=== PATIENT | female | born 1940 | race Caucasian/White ===

== ENCOUNTER 2017-03-23 05:56 | Day surgery (SDC) | payer MEDICARE ==
[~2017-03-23] VITALS: Ht 155.6 cm; Wt 80.9 kg
[~2017-03-23 05:56] MED LIST: ACET-3088 PO; ASPI-611 PO; CALC600T12 PO; CETI10TA4 PO; CHOL3000 PO; ESTR42.53 VAGINALLY; FAMO-137 PO; FISH1CAP29 PO; HYDR-4246 PO; LISI-127 PO; MULT-806 PO; OMEP-29 PO; OMEP20TA2 PO
[2017-03-23 06:00] VITALS: BP 142/73; PULSE 80; RESP 16; TEMP 97.9; O2SAT 97; Ht 155.6 cm; Wt 80.9 kg
--- OUTSIDE RECORDS SUMMARY | 2017-03-23 06:00 | XMS REPORT | Referral Summary ---
Author Author [facility] Organization [facility] Address Unknown Phone Unavailable Care Team Providers Care Car Racer Name Role Phone Sachi Espinal Primary Care Physician [phone] Encounter VC Date(s): 12/27/16 - 12/27/16 [facility] [address] [place], [place] [address] [[email or web address]] Discharge Disposition: 01-Home or Self Care Attending Physician: Delbert Le MD Admitting Physician: Delbert Le MD Vital Signs No data available for this section Problem List Condition Effective Dates Status Health Status Informant Hypertension(Confirm Active ed) Obesity(Confirmed) Active patient Allergies, Adverse Reactions, Alerts Substance Reaction Severity Status ampicillin Active codeine Active morphine Active Medications Aspir 81 mg, Oral, Daily, 0 Refill(s) Start Date: 11/17/16 Status: Ordered calcium (as carbonate) 600 mg oral tablet mg tabs, Oral, TID, 0 Refill(s) Start Date: 11/17/16 Status: Ordered Daily Multivitamins oral tablet tabs, Oral, Daily, 0 Refill(s) Start Date: 11/17/16 Status: Ordered Fish Oil Oral, 0 Refill(s) Start Date: 11/17/16 Status: Ordered lisinopril Oral, Daily, 0 Refill(s) Start Date: 11/17/16 Status: Ordered Tylenol 325 mg oral capsule mg caps, Oral, TID, 0 Refill(s) Start Date: 11/17/16 Status: Ordered ZyrTEC Daily, 0 Refill(s) Start Date: 11/17/16 Status: Ordered Results No data available for this section Immunizations No data available for this section Procedures Procedure Date Related Diagnosis Body Site Cholecystectomy Surgery1 1Left knee surgery Social History Social History Type Response Smoking Status Never smoker Assessment and Plan Extracted from: Title: SB Shoulder Author: Delbert Le MD Date: 12/27/16 Impression and Plan Diagnosis Orthopedic aftercare (BGC10-GB Z47.89, Medical). Course: Improving. Patient Instructions: Counseled: Patient, Regarding diagnosis, Verbalized understanding. Orders Orders (Selected) Outpatient Orders Ordered Postoperative Est 25794: Completed Shoulder XR Complete Left: . Dx/Order Association Plan: Diagnosis: Orthopedic aftercare Comment: XRs reviewed and discussed with pt today. Handouts given. Based on today's assessment, she appears to be healing well. Will refer to PT. She can discontinue use of the sling. All questions answered today. F/U in x6 weeks. . This note is prepared by Patric Figueroa, acting as medical translator for Delbert Le MD. Delbert Le MD. The scribe's documentation has been prepared under my direction and personally reviewed by me in its entirety. I confirm that the note above accurately reflects all work, treatment, procedures, and medical decision making performed by me.
--- OUTSIDE RECORDS SUMMARY | 2017-03-23 06:01 | XMS REPORT | Referral Summary ---
Author Author [facility] Organization [facility] Address Unknown Phone Unavailable Care Team Providers Care Fur Puller Name Role Phone Sachi Espinal Primary Care Physician [phone] Encounter Date(s): 11/17/16 - 11/17/16 [facility] [address] [place], [place] [address] [[email or web address]] Discharge Diagnosis: Nondisplaced fracture of surgical neck of left humerus Discharge Diagnosis: Closed fracture of greater tuberosity of left humerus Discharge Disposition: 01-Home or Self Care Attending [...] Procedures Procedure Date Related Diagnosis Body Site Closed treatment of proximal humeral 11/17/16 (surgical or anatomical neck) fracture; without manipulation Cholecystectomy Surgery1 1Left knee surgery Social History Social History Type Response Smoking Status Never smoker Assessment and Plan Extracted from: Title: Office Visit Note Author: Delbert Le MD Date: 11/17/16 Assessment/Plan Closed fracture of greater tuberosity of left humerus Ordered: cltx proximal humeral fracture w/o manipulation 91423 Office Visit Level 3 New 26722 Nondisplaced fracture of surgical neck of left humerus Pain in left shoulder
--- OUTSIDE RECORDS SUMMARY | 2017-03-23 06:01 | XMS REPORT | Referral Summary ---
Author Author [facility] Organization [facility] Address Unknown Phone Unavailable Care Team Providers Care Jalousie Installer Name Role Phone Sachi Espinal Primary Care Physician [phone] Encounter VC Date(s): 11/26/16 - 11/26/16 [facility] [address] [place], [place] [address] [place] Discharge Disposition: 01-Home or Self Care Attending Physician: Nell Castro APRN Admitting Physician: Nell Castro APRN Vital Signs Most recent to 1 oldest [Reference Range]: Respiratory Rate 22 br/min [14-20 br/min] *HI* (11/26/16 11:35 AM) Problem List Condition Effective Dates Status Health [...] 0 Refill(s) Start Date: 11/17/16 Status: Ordered Ultram 50 mg oral tablet 50 mg 1 tabs, Oral, q6hr, as needed for pain, # 30 tabs, 0 Refill(s), called to pharmacy (Rx) Start Date: 11/26/16 Stop Date: 12/17/16 Status: Ordered ZyrTEC Daily, 0 Refill(s) Start Date: 11/17/16 Status: Ordered Results No data available for this section Immunizations No data available for this section Procedures Procedure Date Related Diagnosis Body Site Cholecystectomy Surgery1 1Left knee surgery Social History Social History Type Response Smoking Status Never smoker Assessment and Plan Extracted from: Title: Office Visit Note Author: Nell Castro [facility] Date: 11/26/16 Assessment/Plan Fracture of left humerus Patient is 2 weekspost injuryfor nonoperativeleft humeralneck fracture. Patient is going to continue with nonoperative management. She is finished continue wearing her slingand protecting her left shoulder. She will do her exercises as prescribed. A prescription for Ultram was sent out for pain management if the Tylenoldoes not work. Patient will follow-up again in 4 weeks. Patient is agreeable with this plan. All questions were answered in clinic at this time. My card was given to the patient and told to call if she has any questions or concerns prior to her next follow-up. Ordered: Office Visit Level 3 Est [id number] XR Shoulder Complete Left
--- OUTSIDE RECORDS SUMMARY | 2017-03-23 06:01 | XMS REPORT | Continuity of Care Document ---
Author Author [facility] Organization [facility] Address Unknown Phone Unavailable Care Team Providers Care Sales Solutions Representative Name Role Phone WILLIAMS ESPINAL MD Primary Care Physician [phone] Insurance Providers Guarantor Sonal Johnson Address [address] [place] [address] Email [email or web address] Payer [employer] Gold H[employer] Policy Number [id number] Subscriber's Name Sonal Johnson Relationship 18 Self Effective Date 14 Chief Complaint and Reason for Visit Chief Complaint Upper Extremity Injury Reason for Visit [id number] Radial head fracture, closed Problems Past Problems Medical Problem Onset Date Closed left humeral fracture Unknown Radial head fracture, closed Unknown Medications Current Home Medications Medication Dose Units Route Directions Days Qty Instructions Start Date Acetaminophen (Tylenol Arthritis) 650 Mg Tablet.er 1,300 Mg Oral Twice A Day 11/11/16 Aspirin 81 Mg Tablet 81 Mg Oral Daily 05/18/13 Calcium Carbonate (Calcium) 600 Mg Tablet 600 Mg Oral Daily 05/18 Cetirizine Hcl (Zyrtec) 10 Mg Tablet 10 Mg Oral Daily 05/18/13 Fish Oil/Gordon-3 Fatty Acids (Fish Oil 1,000 Mg Capsule) 1 Cap Capsule 2 Cap Oral Daily 05/18/13 Hydrocodone/Acetaminophen (Bloomer 5-325 Tablet) 5-325 Tablet 1-2 Tab Oral Every 4-6 Hours Prn 40 Tablet 11/11/16 Lisinopril 10 Mg Tablet 10 Mg Oral Twice A Day 05/18/13 Multivitamins (Multivitamin) 1 Tab Tablet 1 Tab Oral Daily Omeprazole (Prilosec) 20 Mg Capsule.dr 20 Mg Oral Twice A Day Social History Social History Problem Response Recorded Date/Time Onset Date Status Chewing Tobacco Status No 05/18/2013 4:20pm Not Applicable Not Applicable Hx Substance Use No 11/11/2016 2:10pm Not Applicable Not Applicable Hx Alcohol Use Y SOCIALLY 11/11/2016 2:10pm Not Applicable Not Applicable Has the pt used tobacco in the last 12 months No 05/21/2013 6:20am Not Applicable Not Applicable Query Response Start Date Stop Date Smoking Status Never smoker Hospital Discharge Instructions No hospital discharge instructions. Plan of Care Discharge Date 11/11/16 4:35pm Disposition 01 DISCHARGED HOME, SELF-CARE Condition at Discharge Stable Instructions/Education Provided DI for Shoulder Fracture Prescriptions See Medication Section Referrals WILLIAMS ESPINAL MD Address: [address] [facility] [address] [place] [id number] Additional Instructions/Education Call Dr. Delbert Le office in [place] for follow up appointment [phone]. [address] [facility] Take x-ray disk with you to appointment. Wear shoulder immobilizer as directed. Avoid supination of elbow. Ice shoulder every hours for 15 minutes for next 48 hours. You may take OTC ibuprofen for pain. Take Bloomer 5/325mg, 1-2 tabs every 4-6 hours as needed for pain. Follow treatment plan. Care Plan and Goals Physician Care Plan Problem: Left humeral fracture, radial head fracture left Goal: Follow up with primary care provider Instructions: Take medications and follow care plan as discussed/written Functional Status No functional status results. Allergies, Adverse Reactions, Alerts Allergen Type Severity Reaction Status Last Updated Morphine Allergy Intermediate RASH Active 05/21/13 Codeine Allergy Intermediate RASH Active 05/21/13 Ampicillin Allergy Intermediate RASH Active 05/21/13 Alendronate sodium Adverse Reaction Mild BOTHERED HER STOMACH Active 05/21 Immunizations Query Response on File Recorded Date/Time Hx Influenza Vaccination Y AUG 2012 05/21/13 6:20am Hx Pneumococcal Vaccination Y UNSURE OF DATE-WITHIN LAST 7 YEARS 05/21/13 6: 20am Hx Influenza Vaccination Y AUG 2012 05/21/13 6:20am Vital Signs Acute Vital Signs Vital Response Date/Time Temperature (Fahrenheit) 98.0 deg F (96.8 - 99.1) 11/11/2016 4:35pm Temperature (Calculated Celsius) 36.63405 degrees C (36.0 - 37.3) 11/11/2016 4:35pm Pulse Rate (adult) 66 bpm (60 - 100) 11/11/2016 4:35pm Respiratory Rate 16 breaths/min (10 - 20) 11/11/2016 4:35pm O2 Sat by Pulse Oximetry 94 % (90 - 100) 11/11/2016 4:35pm Blood Pressure 125/70 mm Hg 11/11/2016 4:35pm Height (Feet) 5 feet 11/11/2016 2:10pm Height (Inches) 1.00 inches 11/11/2016 2:10pm Weight (Kilograms) 84.400 kg 11/11/2016 2:10pm Body Mass Index (BMI) 35.0 11/11/2016 2:10pm Results Name: SONAL JOHNSON Unit #: [id number] : 1940 Sex: F Admit Date: Loc / Svc: ED Discharge Date: DIAGNOSTIC IMAGING REPORT Report #: [id number] [facility] [place] Indication: ITS.REASON: Fall with left elbow pain with movement PROCEDURE: ELBOW LEFT 3 VIEW: Encounter: Initial Comparison: None Findings: There is a sharp cortical margin along the radial head superiorly seen on the lateral view only. This is not definitely confirmed on the other views. No additional area concerning for acute fracture or dislocation. Impression: Subtle evidence for a nondisplaced radial head fracture. . Procedures No known history of procedures. Encounters Encounter Location Arrival/Admit Date Discharge/Depart Date Attending Provider Departed Emergency Room [facility] 11/11/16 2:03pm 11/11/16 4: 35pm SUBHASH CROWDER DO Recent Diagnosis
[2017-03-23] MEDS ORDERED: LR 1,000 ML IV SCH (07:00)
[2017-03-23] MEDS ORDERED: LIDOCAINE 1% (10mg/ml) 2ml SDV INJ ONE (07:00)
[2017-03-23] MEDS ORDERED: LIDOCAINE VISCOUS 2% Oral Soln 15ml UD ONE (07:18)
--- NOTE | 2017-03-23 07:27 | ANESPREOP ---
Anesthesia Record Date and Time DATE: 03/23/17 TIME: 07:24 Pre-Op Diagnosis anemia, GERD, CRCS Proposed Surgical Procedure EGD & COLONOSCOPY Allergies: Coded Allergies: ampicillin (Verified Allergy, Intermediate, RASH, 03/23/17) codeine (Verified Allergy, Intermediate, RASH, 03/23/17) morphine (Verified Allergy, Intermediate, RASH, 03/23/17) alendronate sodium (Verified Adverse Reaction, Mild, BOTHERED HER STOMACH , 03/23/17) Ht/Wt/BMI Height: 5 ' 1.25 " Weight: 80.900 kg BMI: 33.4 kg/m2 Vital Signs Date Time Temp Pulse Resp B/P Pulse Ox O2 Delivery O2 Flow Rate FiO2 03/23/17 06:00 97.9 80 16 142/73 97 Room Air Medications Inpatient Medications Current Medications Medications (Trade) Dose Ordered Sig/Bernardo Start Time Stop Time Status Last Admin Dose Admin Lactated Ringer's (Lactated Ringers) 1,000 ml @ 50 mls/hr Q20H 03/23/17 07:00 03/23/17 06:31 50 MLS/HR Acetaminophen (Tylenol Arthritis) 650 Mg Tablet.er, 1,300 MG PO BID, (Reported) Last Taken: on 03/22/17 0800 Aspirin (Aspirin) 81 Mg Tablet, 81 MG PO DAILY, (Reported) Last Taken: on 03/18/17 0800 Calcium Carbonate (Calcium) 600 Mg Tablet, 600 MG PO DAILY, (Reported) Last Taken: on 03/22/17 0800 Cetirizine Hcl (Zyrtec) 10 Mg Tablet, 10 MG PO DAILY, (Reported) Last Taken: on 03/21/17 2100 Cholecalciferol (Vitamin D3) (Vitamin D3) 3,000 Unit Tablet, 1 TAB PO DAILY, (Reported) Last Taken: on 03/22/17 0800 Famotidine (Pepcid) 20 Mg Tablet, 1 TAB PO HS, ( Reported) Last Taken: on 03/22/17 0800 Fish Oil/[place]-3 Fatty Acids (Fish Oil 1,000 Mg Capsule) 1 Cap Capsule, 2 CAP PO DAILY, (Reported) Last Taken: on 03/18/17 0800 Lisinopril (Lisinopril) 10 Mg Tablet, 10 MG PO BID, (Reported) Last Taken: on 03/23/17 0530 Multivitamins (Multivitamin) 1 Tab Tablet, 1 TAB PO DAILY, (Reported) Last Taken: on 03/22/17 0800 Omeprazole Magnesium (Prilosec Otc) 20 Mg Tablet.dr, 1 TAB PO DAILY, (Reported) Last Taken: on 03/22/17 0800 Currently on Beta Kathy: No Medical/Surgical History Anesthesia PMH: Reports: *Hypertension (PER H&P), Arthritis, Reflux (PER H&P), Denies: *Angina, *Diabetes, *Dyspnea, *PR, Anesthesia Reactions, Asthma, Blood Transfusion Reac, CHF, COPD, CVA/Stroke/TIA, Cancer, Clotting Problems, Deep Vein Thrombosis, Glaucoma, Hepatitis, Hiatal Hernia, Malignant Hyperthermia, Pneumonia, Renal Disease, Seizures, Sleep Apnea, Thyroid Disease, Tuberculosis Smoking Status: Never smoker Use Chewing Tobacco?: No Second Hand Exposure: No Substance Use Type: does not use Alcohol Intake: other (OCCAS) Past Surgical History Orthopedic Surgeries: Yes - ORIF LT UPPER TIBIA FX Abdominal Surgeries: Yes - LAP BIPIN PER H&P Genitourinary Surgeries: No Cardiac Surgeries: No Endocrine Surgeries: No Reproductive Surgeries: Yes - LAPAROSCOPIC OVARIAN CYSTECTOMY Neurological Surgeries: No Ear Surgeries: No Nose Surgeries: No Throat Surgeries: No Other Surgeries: Yes - COLONOSCOPY-PER PAST ADMIT Anesthesia Adverse Reactions: FOUND none Family Hx of Anesthesia Advers: none Hx of Motion Sickness: No Pertinent Findings EKG Rhythm: Sinus Rhythm Physical Exam Respiratory: Lungs clear Cardiovascular: FOUND Regular rate, rhythm, FOUND No murmur Airway Assessment Mallampati Score: II TMD: 3 Fingerbreadths Overall Assessment: No Airway Concerns ASA: 2 Plan Anesthesia Plan: TIVA Discussion Discussed risks/options/alternatives of anesthesia and questions answered. Patient consents. Nursing pain assessment noted. Present: Spouse Attestation Statement Prior to the delivery of any anesthetic medication, I examined the patient, developed the plan, obtained the patient's consent and discussed the risk and benefits of the procedure with the patient/guardian. JASON SMALL CRNA March 23, 2017 07:26
[2017-03-23 08:14] VITALS: BP 84/50; PULSE 72; RESP 16; TEMP 97.5; O2SAT 92
[2017-03-23 08:20] VITALS: BP 87/49; PULSE 73; RESP 15; O2SAT 99
[2017-03-23 08:30] VITALS: BP 123/60; PULSE 69; RESP 16; O2SAT 100
[2017-03-23 08:40] VITALS: BP 118/63; PULSE 63; RESP 15; O2SAT 100
--- NOTE | 2017-03-23 08:51 | ANESPO ---
Post-Op Note Date 03/23/17 Time: 08:50 Status Pt Participated in Evaluation: Pt participated by phone Vital Signs Date Time Temp Pulse Resp B/P Pulse Ox O2 Delivery O2 Flow Rate FiO2 03/23/17 08:40 63 15 118/63 100 Room Air 03/23/17 08:14 97.5 Respiratory Function: Airway patent Cardiovascular Function: Regular pulse Mental Status: Alert/oriented Pain Level Intensity: 0 Hydration: Taking po fluids, IV infusing Complications during Recovery None apparent Follow-Up Instructions Instructions Per Surgeon WILLIAMS GONZALEZ CRNA March 23, 2017 08:51
--- NOTE | 2017-03-23 13:17 | OPNOTEF ---
DATE OF OPERATION 03/23/2017 PREOPERATIVE DIAGNOSIS Gastroesophageal reflux disease. POSTOPERATIVE DIAGNOSIS Hiatal hernia. OPERATION Esophagogastroduodenoscopy with biopsy for JESSICA testing from the antrum. SURGEON Venu Espinal M.D. DESCRIPTION OF OPERATIVE PROCEDURE The patient was placed in the left lateral position. The gastroscope was introduced into the esophagus without difficulty and advanced into the second portion of the duodenum. The duodenal mucosa appeared normal without evidence of hemorrhage, mass lesions, ulcerations, polyps or diverticula. The scope was pulled back to the pyloric channel which was clear, into the stomach with the antrum showing no significant abnormalities. Biopsy was taken from the antrum for JESSICA testing. The scope was then retroflexed with the cardia and fundus visualized with hiatal hernia noted. No significant inflammatory changes, mass lesions, or ulcerations were noted. The body of the stomach had normal appearing rugae with no abnormalities. The scope was then pulled out of the stomach after suctioning, with hiatal hernia noted as mentioned above. The EG junction was noted at 30 cm with a moderate sized hiatal hernia. The esophageal mucosa showed no significant erosions, ulcerations or mass lesions. No stenosis or narrowing was noted. The posterior pharynx and vocal cords were clear. The scope was removed, with patient tolerating the procedure well. FINAL DIAGNOSIS 1. History of gastroesophageal reflux disease. 2. Hiatal hernia, moderate size. 3. JESSICA test pathology pending from biopsy from antrum. [facility]
--- NOTE | 2017-03-23 13:19 | OPNOTEF ---
DATE OF OPERATION 03/23/2017 PREOPERATIVE DIAGNOSIS Screening colonoscopy. POSTOPERATIVE DIAGNOSIS Diverticular disease, moderate severity. OPERATION Colonoscopy, no biopsies taken. SURGEON Venu Espinal M.D. DESCRIPTION OF OPERATIVE PROCEDURE The patient was prepped with Colyte the evening prior to the procedure. She was placed in the left lateral position. After a benign digital rectal exam, the colonoscope was inserted and advanced to the cecum with cecal landmarks identified. The cecum, ascending colon, transverse colon and sigmoid showed no evidence of hemorrhage, mass lesions, ulcerations, polyps or significant inflammatory changes. She did have multiple diverticula primarily in the sigmoid colon of moderate severity. The rectum and anus were clear. The colon was suctioned. The scope removed with patient tolerating the procedure well. She was stable post colonoscopy. [facility]
== END 2017-03-23 08:51 | disposition home or self-care (01) ==
LOC: NSC 05:56
DX: Z12.11 Encounter for screening for malignant neoplasm of colon (principal); K57.30 Diverticulosis of large intestine without perforation or abscess without bleeding; K21.9 Gastro-esophageal reflux disease without esophagitis; K44.9 Diaphragmatic hernia without obstruction or gangrene; D64.9 Anemia, unspecified; E66.9 Obesity, unspecified; Z68.33 Body mass index [BMI] 33.0-33.9, adult; I10 Essential (primary) hypertension; M81.0 Age-related osteoporosis without current pathological fracture; Z79.899 Other long term (current) drug therapy
CPT/HCPCS: 43239; 87081; G0121; J7120